=== PATIENT | female | born 1965 | race African-American/Black ===

== ENCOUNTER 2019-12-17 11:14 | Day surgery (SDC) | payer MEDICAID ==
--- NOTE | 2019-12-13 09:57 | RADIOLOGY REPORT (SQ) ---
EXAM DESCRIPTION: CHEST PA/LATERAL IMAGES COMPLETED DATE/TIME: 12/13/2019 9:43 am REASON FOR STUDY: PRE-OP COMPARISON: None. EXAM PARAMETERS: NUMBER OF VIEWS: Two views. TECHNIQUE: PA and lateral views of the chest were obtained. RADIATION DOSE: NA. LIMITATIONS: None. FINDINGS: LUNGS AND PLEURA: No consolidation, pleural effusion or pneumothorax. MEDIASTINUM AND HILAR STRUCTURES: No mediastinal or hilar contour abnormality. HEART AND VASCULAR STRUCTURES: The cardiac silhouette and pulmonary vasculature are within normal estevez its. BONES: No acute findings. HARDWARE: Thoracic spinal stimulator and cholecystectomy clips. OTHER: No other finding. IMPRESSION: No acute cardiopulmonary process. TECHNICAL DOCUMENTATION: JOB ID: [id number] 2010 [employer]- All Rights Reserved Reading location - IP/workstation name: [email or web address]
[2019-12-13 10:29] LABS: HEMATOCRIT 42.5 % (36.0-47.0); HEMOGLOBIN 14.4 g/dL (12.0-15.5); MEAN CORPUSCULAR HEMOGLOBIN 31.9 pg (27.0-33.4); MEAN CORPUSCULAR HGB CONC 33.9 g/dL (32.0-36.0); MEAN CORPUSCULAR VOLUME 94 fl (80-97); PLATELET COUNT 262 10^3/uL (150-450); RED BLOOD COUNT 4.52 10^6/uL (3.72-5.28); RED CELL DISTRIBUTION WIDTH 13.5 % (11.5-14.0); WHITE BLOOD COUNT 5.4 10^3/uL (4.0-10.5)
[2019-12-13 10:36] LABS: INTERNATIONAL RATION (INR) 0.88; PROTHROMBIN TIME 12.1 SEC (11.4-15.4)
[2019-12-13 10:37] LABS: PARTIAL THROMBOPLASTIN TIME 34.4 SEC (23.5-35.8)
[2019-12-13 10:53] LABS: APPEARANCE,URINE SLIGHTLY-CLOUDY; BILIRUBIN,URINE NEGATIVE (NEGATIVE); COLOR,URINE YELLOW; GLUCOSE, URINE NEGATIVE (NEGATIVE); KETONES,URINE NEGATIVE (NEGATIVE); LEUKOCYTE ESTERASE,URINE NEGATIVE (NEGATIVE); NITRITE,URINE NEGATIVE (NEGATIVE); PROTEIN,URINE NEGATIVE (NEGATIVE); URINE SPECIFIC GRAVITY 1.023; UROBILINOGEN,URINE NEGATIVE mg/dL (<2.0)
--- NOTE | 2019-12-13 11:14 | EKG REPORT ---
SEVERITY:- NORMAL ECG - SINUS RHYTHM : Confirmed by: Jennifer Bernstein MD 13-Dec-2019 11:13:13
[~2019-12-17 11:14] MED LIST: BUPIVACAINE HCL 0.25% /EPINEPHRINE INJ/PF 30 ML SDV ONE; CEFAZOLIN 1 GM/D5W RTU 1 GM/50 ML RTUPB IV ONE; CEFAZOLIN 1 GM/D5W RTU 1 GM/50 ML RTUPB IV PRN; LACTATED RINGERS 1000 ML IV PRN; LIDOCAINE 0.5% INJ-PF (5 MG/ML) 50 ML SDV SUBCUT PRN; LIDOCAINE 1% INJ-PF (10 MG/ML) 30 ML SDV ONE; SODIUM BICARBONATE 4.2% INJ (2.5 MEQ/5 ML) VIAL ONE
[2019-12-17 12:12] LABS: URINE AMPHETAMINES SCREEN NEGATIVE; URINE BENZODIAZEPINES SCREEN NEGATIVE; URINE COCAINE SCREEN NEGATIVE; URINE MARIJUANA (THC) SCREEN NEGATIVE; URINE METHADONE SCREEN NEGATIVE; URINE PHENCYCLIDINE SCREEN NEGATIVE
[2019-12-17 12:26] LABS: URINE BARBITURATES SCREEN UNCONFIRMED POSITIVE
[2019-12-17] MEDS ORDERED: MIDAZOLAM 2 MG/2 ML INJ ONE ×2 (12:28→12:34)
[2019-12-17] MEDS ORDERED: KETAMINE HCL INJ 500 MG/10 ML VIAL ONE (12:33)
[2019-12-17] MEDS ORDERED: PROPOFOL INJ 200 MG/20 ML VIAL IV ONE ×3 (12:34→12:35)
[2019-12-17] MEDS ORDERED: FENTANYL CITRATE INJ/PF 100 MCG/2 ML AMPUL ONE (12:34)
[2019-12-17] MEDS ORDERED: HYDROMORPHONE HCL INJ/PF 2 MG/ML AMPULE ONE (12:34)
[2019-12-17] MEDS ORDERED: MIDAZOLAM 2 MG/2 ML INJ IV PRN (12:40)
[2019-12-17] MEDS ORDERED: FENTANYL CITRATE INJ/PF 100 MCG/2 ML AMPUL IV PRN ×3 (13:58)
[2019-12-17] MEDS ORDERED: DIPHENHYDRAMINE HCL 50 MG/ML VIAL IV PRN (13:58)
[2019-12-17] MEDS ORDERED: CEFAZOLIN INJ 1 GM VIAL ONE (14:15)
--- NOTE | 2019-12-17 14:21 | Operative Report ---
Operative Report DATE OF SURGERY: 12/17/19 PREOPERATIVE DIAGNOSIS: Nonfunctioning spinal cord stimulator system due to exp ired battery POSTOPERATIVE DIAGNOSIS: Same OPERATION: Revision spinal cord stimulator system with battery replacement [employer]: JOLIE ZEPEDA ANESTHESIA: LMAC ESTIMATED BLOOD LOSS: Minimal PROCEDURE: After obtaining informed consent advised the patient of the risk and benefits including serious neurological injury damage to the spinal cord stimulator leads and system bleeding infection allergic reaction and she was taken to the operating room. She was placed comfortably in the prone position. MAC anesthesia was administered. She was then prepped over the desired region left gluteal region back with chlorhexidine. Appropriate drying time was allowed followed by draping. Skin at the selected site was then anesthetized with 1% lidocaine with bicarb. Be noted appropriate timeout was taken at the time of initiation of the surgical case. Sharp and blunt dissection was performed down to the spinal cord stimulator pulse generator. Was readily removed from the pocket without difficulty. Leads were disconnected. The wires/electrodes were heavily scarred down and some attempt was made to free them up. The new pulse generator was then passed passed onto the field. It was connected to the electrodes in the same fashion that it had been prior to this removing the old system. Should be noted that the wire swelling prohibited complete insertion of the wires after discussion with the [facility] and the decision was made to excepted in his position with approximately 6 electrodes working in each lead system. Hex nuts were then secured region was copiously irrigated with Betadine containing irrigation solution. Generator was placed back into the pocket the wires coiled nicely behind it. The scar of the pocket was then closed with a single 2-0 Polysorb stitch using a running interlocking technique. The s ubcutaneous tissue was then closed with inverted vertical mattress sutures using 3-0 Polysorb. The skin was then sealed with Dermabond cement and tape. When this was dry a sponge Tegaderm was placed over this. She was then taken to the PACU for further postoperative care and monitoring. Please see that I have a copy of this note and of dictation
[2019-12-17] MEDS ORDERED: OXYCODONE-ACETAMINOPHEN 5-325 MG TABLET PO PRN (14:41)
[2019-12-17] MEDS ORDERED: OXYCODONE-ACETAMINOPHEN 5-325 MG TABLET ONE (15:27)
--- NOTE | 2019-12-17 15:35 | RADIOLOGY REPORT (SQ) ---
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 FLUOROSCOPY TIME: 0.1 minutes. 2 images saved to PACS. TECHNIQUE: Intra-operative images acquired during surgical procedure to evaluate progress. NUMBER OF IMAGES: 2 images. LIMITATIONS: None. FINDINGS: Images acquired during the procedure. IMPRESSION: IMAGE(S) OBTAINED DURING PROCEDURE. COMMENT: Quality ID [id number]: Final reports for procedures using fluoroscopy that document radiation exp osure indices, or exposure time and number of fluorographic images (if radiation exposure indices are not available) Please consult full operative report of the attending physician for description of the procedure. TECHNICAL DOCUMENTATION: JOB ID: [id number] 2010 [employer]- All Rights Reserved Reading location - IP/workstation name: [email or web address]
--- NOTE | 2019-12-17 15:35 | RADIOLOGY REPORT (SQ) ---
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 FLUOROSCOPY TIME: 0.1 minutes. 2 images saved to PACS. TECHNIQUE: Intra-operative images acquired during surgical procedure to evaluate progress. NUMBER OF IMAGES: 2 images. LIMITATIONS: None. FINDINGS: Images acquired during the procedure. IMPRESSION: IMAGE(S) OBTAINED DURING PROCEDURE. COMMENT: Quality ID [id number]: Final reports for procedures using fluoroscopy that document radiation exp osure indices, or exposure time and number of fluorographic images (if radiation exposure indices are not available) Please consult full operative report of the attending physician for description of the procedure. TECHNICAL DOCUMENTATION: JOB ID: [id number] 2010 [employer]- All Rights Reserved Reading location - IP/workstation name: [email or web address]
[2019-12-17] MEDS ORDERED: SUCRALFATE 1 GM TABLET PO ONE (15:45)
[2019-12-17 16:32] VITALS: BP 124/64
== END 2019-12-17 16:30 | disposition home or self-care (01) ==
LOC: OROUT 11:14
PROVIDERS: ATTEND Pain Medicine Interventional Pain Medicine
DX: G89.4 Chronic pain syndrome (principal); M54.17 Radiculopathy, lumbosacral region; E11.9 Type 2 diabetes mellitus without complications; F17.210 Nicotine dependence, cigarettes, uncomplicated; J43.9 Emphysema, unspecified; R01.1 Cardiac murmur, unspecified; Z03.818 Encounter for observation for suspected exposure to other biological agents ruled out; Z79.899 Other long term (current) drug therapy; Z79.84 Long term (current) use of oral hypoglycemic drugs
CPT/HCPCS: 63688; 93005; 36415; 82962; 85027; 85610; 85730; 87635; 81001; 80307; 71046; 72020; 93010; C1767; J2250; J3490 ×5; J0690 ×2; J1170; J2704; C9803; 300; J3010